=== PATIENT | male | born 1985 | race Caucasian/White ===

== ENCOUNTER 2017-03-21 15:15 | Emergency (ER) | payer SELFPAY | END 2017-03-21 15:33 | disposition home or self-care (01) | LOC: NAV ERS 15:15 | DX: J20.9 Acute bronchitis, unspecified (principal); F41.9 Anxiety disorder, unspecified; F17.210 Nicotine dependence, cigarettes, uncomplicated; Z79.899 Other long term (current) drug therapy | CPT/HCPCS: 99283 ==

== ENCOUNTER 2017-07-21 14:27 | Emergency (ER) | payer SELFPAY ==
[2017-07-21] MEDS ORDERED: Ibuprofen 800 MG TAB ONE (15:14)
== END 2017-07-21 15:17 | disposition home or self-care (01) ==
LOC: NAV ERS 14:27
DX: H65.91 Unspecified nonsuppurative otitis media, right ear (principal); F41.9 Anxiety disorder, unspecified; F17.210 Nicotine dependence, cigarettes, uncomplicated; Z79.899 Other long term (current) drug therapy
CPT/HCPCS: 99282

== ENCOUNTER 2020-11-02 09:51 | Emergency (ER) | payer SELFPAY ==
[2020-11-02] MEDS ORDERED: Tetracaine HCl 0.5% Ophth Soln 2 ML Bottle ONE (10:16)
[2020-11-02] MEDS ORDERED: Naproxen 500 MG TAB ONE (10:17)
== END 2020-11-02 10:34 | disposition home or self-care (01) ==
LOC: NAV ERS 09:51
DX: H60.501 Unspecified acute noninfective otitis externa, right ear (principal); H65.91 Unspecified nonsuppurative otitis media, right ear; F17.210 Nicotine dependence, cigarettes, uncomplicated
CPT/HCPCS: 99282

== ENCOUNTER 2021-12-17 17:56 | Emergency (ER) | payer SELFPAY ==
[2021-12-17] MEDS ORDERED: Ondansetron PF 4 MG/2 ML Vial ONE (18:23)
[2021-12-17] MEDS ORDERED: Morphine 4 MG/ML VIAL ONE (18:23)
[2021-12-17] MEDS ORDERED: Sodium Chloride 0.9% 1,000 ML ONE ×2 (18:23→18:27)
[2021-12-17 18:24] LABS: #Lymphocytes 0.2 thou/uL (1.20-3.40); #Monocytes 0.4 thou/uL (0.11-0.59); #Neutrophils 5.8 thou/uL (1.40-6.50); %Basophils 0.6 % (0.0-1.0); %Monocytes 6.5 % (0.0-10.0); %Neutrophils 89.9 % (42.0-75.0); Mean Corpuscular HGB CONC 32.4 g/dL (32.0-36.0); Mean Corpuscular Hemoglobin 30.5 pg (27.0-31.0); Mean Corpuscular Volume 94.1 fL (78.0-98.0); Mean Platelet Volume 9.1 fL (7.4-10.4); Platelet Count 161 thou/uL (130-400); RBC Distribution Width 11.6 % (11.5-14.5); Red Blood Cell (RBC) Count 5.26 mill/uL (4.70-6.10); White Blood Cell (WBC) Count 6.4 thou/uL (4.8-10.8)
[2021-12-17 18:32] LABS: Bilirubin Negative (Negative); Blood, Urine Negative (Negative); Clarity Clear (Clear); Glucose, Urine (Dipstick) Negative (Negative); Ketone, Urine Negative (Negative); Leukocyte Negative (Negative); Nitrite Negative (Negative); Protein, Urine (Dipstick) Negative (Neg-Trace); Urobilinogen 0.2 mg/dL (Less than 2)
[2021-12-17] MEDS ORDERED: Acetaminophen 500 MG TAB ONE (18:44)
[2021-12-17 18:46] LABS: ALT (SGPT) 59 U/L (8-55); AST (SGOT) 58 U/L (5-34); Albumin 4.7 g/dL (3.5-5.0); Alkaline Phosphatase 71 U/L (40-110); Anion Gap 19 mmol/L (10-20); BUN (Urea Nitrogen) 9 mg/dL (8.9-20.6); Calc. Creatinine Clearance 0 mL/min (70-130); Calcium 9.7 mg/dL (7.8-10.44); Carbon Dioxide 20 mmol/L (22-29); Chloride 97 mmol/L (98-107); Globulin 3.5 g/dL (2.4-3.5); Glucose 123 mg/dL (70-105); Lipase 13 U/L (8-78); Potassium 3.9 mmol/L (3.5-5.1); Protein, Total 8.2 g/dL (6.0-8.3); Sodium 132 mmol/L (136-145)
[2021-12-17 18:55] LABS: CK (CPK) 188 U/L (30-200); Magnesium 1.3 mg/dL (1.6-2.6)
[2021-12-17] MEDS ORDERED: Magnesium 2 GM/50 ML BAG (IN WATER) ONE (19:10)
== END 2021-12-17 21:15 | disposition home or self-care (01) ==
LOC: NAV ERS 17:56
DX: U07.1 COVID-19 (principal); F10.10 Alcohol abuse, uncomplicated; E83.42 Hypomagnesemia; F17.210 Nicotine dependence, cigarettes, uncomplicated
CPT/HCPCS: 71045; 80053; 81003; 82550; 83690; 83735; 85025; 87804; 94760; 96365; 96375; J2270; J2405; J3475; J7030; J7050; U0003; U0005

== ENCOUNTER 2022-08-24 11:19 | Emergency (ER) | payer SELFPAY | END 2022-08-24 12:18 | disposition home or self-care (01) | LOC: NAV ERS 11:19 | DX: H66.91 Otitis media, unspecified, right ear (principal); J01.90 Acute sinusitis, unspecified; F17.210 Nicotine dependence, cigarettes, uncomplicated | CPT/HCPCS: 99283 ==

== ENCOUNTER 2023-05-12 14:43 | Emergency (ER) | payer SELFPAY ==
[2023-05-12] MEDS ORDERED: Ibuprofen 800 MG TAB ONE (14:52)
== END 2023-05-12 15:40 | disposition home or self-care (01) ==
LOC: NAV ERS 14:43
DX: B34.9 Viral infection, unspecified (principal); F17.210 Nicotine dependence, cigarettes, uncomplicated
CPT/HCPCS: 87804; 99283

== ENCOUNTER 2023-07-24 12:27 | Emergency (ER) | payer SELFPAY | END 2023-07-24 13:25 | disposition home or self-care (01) | LOC: NAV ERS 12:27 | DX: H66.91 Otitis media, unspecified, right ear (principal); F17.210 Nicotine dependence, cigarettes, uncomplicated | CPT/HCPCS: 99283 ==